=== PATIENT | female | born 1970 ===

== ENCOUNTER → 2016-08-07 | Outpatient (REF) | payer BC ==
[2016-08-07 14:50] LABS: BASOPHILS % (AUTO) 1 % (0-2); EOSINOPHILS # (AUTO) 0.3 10^3uL; EOSINOPHILS % (AUTO) 4 % (0-4); LYMPHOCYTES # (AUTO) 2.4 X10^3; MEAN CORPUSCULAR HGB CONC 35.4 g/dL (31.0-37.0); MEAN CORPUSCULAR VOLUME 89 FL (80-100); MEAN PLATELET VOLUME 11.7 FL (6.0-9.5); MONOCYTES # (AUTO) 0.9 X10^3; MONOCYTES % (AUTO) 10 % (3-11); NEUTROPHILS # (AUTO) 5.5 X10^3; NEUTROPHILS % (AUTO) 60 % (51-67); PLATELET COUNT 286 10^3uL (150-450); WHITE BLOOD COUNT 9.13 10^3uL (4.0-11.0)
[2016-08-07 14:53] LABS: MEAN CORPUSCULAR HEMOGLOBIN 31.4 PG (26.0-34.0)
[2016-08-07 15:02] LABS: ALBUMIN 4.3 g/dL (3.4-5.0); ANION GAP 15.1 MEQ/L (3-15); CALCULATED IONIZED CALCIUM 4.2 mg/dL (3.8-4.6); TOTAL PROTEIN 7.3 g/dL (6.4-8.5)
== END ==
LOC: LAB 14:40
PROVIDERS: ATTEND Nurse Practitioner Family
DX: R21 Rash and other nonspecific skin eruption (principal); R53.83 Other fatigue
CPT/HCPCS: 80053; 84443; 85025; 87252